=== PATIENT | male | born 1940 | race Hispanic/Latino ===

== ENCOUNTER 2019-09-03 05:01 | Observation (INO) | payer MEDICARE ==
--- NOTE | 2019-09-03 06:56 | Emergency Department Report ---
HPI - General Chief Complaint: Fall Time Seen by Provider: 09/03/19 06:07 - HPI HPI: This is a 78-year-old male who presents to the emergency department via EMS from his shelter, [facility] [place], after the patient had a fall yesterday with possible syncopal episode. Patient says that he remembers going to lunch at the shelter and was reaching for a wet wipe and then woke up on the ground. He did hit his head and face and presents with a small laceration above the right eye and bruising around the right eye. It is unknown whether the patient lost consciousness first, or whether he hit his head and then lost consciousness. Patient says this morning he felt like he was having some difficulty with his memory and speech, but that has since resolved. He said "I could not remember how to do certain things like use the bathroom." He has a past medical history of arthritis, COPD, hypertension. The patient sometimes is able to walk with a walker but appears to be at this shelter secondary to some previous physical deconditioning stemming from an infected gallbladder and prolonged hospitalization. He is awake, alert, oriented at this time. ED Past Medical Hx - Past Medical History Hx Hypertension: Yes Hx Arthritis: Yes Hx COPD: Yes - Social History Smoking Status: Never Smoker Substance Use Type: Alcohol - Medications Home Medications: Home Medications Medication Instructions Recorded Confirmed Last Taken Type hydroCHLOROthiazide 50 mg PO QDAY 09/03/19 09/03/19 Unknown History [Hydrochlorothiazide] ED Review of Systems ROS: Stated complaint: FALL Other details as noted in HPI Comment: All other systems reviewed and negative Constitutional: denies: chills, fever Eyes: denies: eye pain, vision change ENT: denies: ear pain, throat pain Respiratory: denies: cough, shortness of breath Cardiovascular: denies: chest pain, palpitations Gastrointestinal: denies: abdominal pain, vomiting Genitourinary: denies: dysuria, discharge Musculoskeletal: denies: back pain, arthralgia Skin: other (right periorbital ecchymoses, small right forehead laceration). denies: rash Neurological: headache. denies: numbness Physical Exam - Physical Exam Vital Signs: Vital Signs 09/03/19 09/03/19 09/03/19 05:14 05:15 05:19 Temperature 97.9 F Blood Pressure O2 Sat by Pulse 99 97 Oximetry 09/03/19 09/03/19 05:30 05:45 Temperature Blood Pressure 156/82 162/85 O2 Sat by Pulse 98 97 Oximetry Physical Exam: GENERAL: The patient is well-developed well-nourished. HENT: Normocephalic. Patient has moist mucous membranes. EYES: Extraocular motions are intact. Pupils equal reactive to light bilaterally. NECK: Supple. Trachea is midline. CHEST/LUNGS: Clear to auscultation. There is no respiratory distress noted. HEART/CARDIOVASCULAR: Regular. There is no tachycardia. ABDOMEN: Abdomen is soft, nontender. Patient has normal bowel sounds. There is no abdominal distention. SKIN: There is a non-expanding right forehead hematoma. There is some right periorbital ecchymosis. NEURO: The patient is awake, alert, and oriented. The patient is cooperative. The patient has no focal neurologic deficits. Normal speech. Cranial nerves II through XII grossly intact. MUSCULOSKELETAL: There is no tenderness or deformity. There is no evidence of acute injury. ED Course Vital Signs 09/03/19 09/03/19 09/03/19 05:14 05:15 05:19 Temperature 97.9 F Blood Pressure O2 Sat by Pulse 99 97 Oximetry 09/03/19 09/03/19 05:30 05:45 Temperature Blood Pressure 156/82 162/85 O2 Sat by Pulse 98 97 Oximetry ED Medical Decision Making - Lab Data Result diagrams: 09/03/19 07:42 09/03/19 07:42 - EKG Data -: EKG Interpreted by Me EKG shows normal: sinus rhythm, axis (Left axis deviation), intervals, QRS complexes, ST-T waves Rate: normal - EKG Data When compared to previous EKG there are: previous EKG unavailable Interpretation: normal EKG (With left axis deviation) - Radiology Data Radiology results: report reviewed, image reviewed interpreted by me: Chest x-ray does not show any acute process. There are no pleural effusions, obvious pneumonia and there is no pneumothorax. CT HEAD/BRAIN WO CON INDICATION / CLINICAL INFORMATION: Trauma. TECHNIQUE: All CT scans at this location are performed using CT dose reduction for ALARA by means of automated exposure control. COMPARISON: None available. FINDINGS: There is a small to moderate right frontal scalp hematoma. I do not identify a skull fracture. The visualized paranasal sinuses and mastoid air cells are clear. There is moderate generalized cerebral atrophy. There are moderate small vessel ischemic changes in the periventricular white matter. No focal intracranial les ion or mass effect is seen. There is no evidence of intracranial hemorrhage or major vessel occlusion. IMPRESSION: Right frontal scalp hematoma without skull fracture or intracranial hemorrhage. CT FACIAL BONES WO CON INDICATION / CLINICAL INFORMATION: Fell out of a chair. Facial trauma. TECHNIQUE: All CT scans at this location are performed using CT dose reduction for ALARA by means of automated exposure control. COMPARISON: None available. FINDINGS: There is a small to moderate right frontal and periorbital hematoma. I do not identify a fracture. The paranasal sinuses and mastoid air cells are clear. The globes are intact. IMPRESSION: Right frontal and periorbital hematoma without acute osseous abnormality. CT CERVICAL SPINE WO CON INDICATION / CLINICAL INFORMATION: Fell out of a chair with neck pain.. TECHNIQUE: All CT scans at this location are performed using CT dose reduction for ALARA by means of automated exposure control. COMPARISON: None available. FINDINGS: There is moderate degenerative disc disease at the 4-5 and C5-6. The prevertebral soft tissues are normal. There is no evidence of fracture or subluxation. I see no evidence of a focal disc herniation administration or epidural hematoma. The visualized lung apices are clear. There are incidental subcentimeter thyroid nodules bilaterally. No additional follow- up is recommended based on size criteria. IMPRESSION: 1. Spondylosis without acute osseous abnormality. 2. Incidental small thyroid nodules bilaterally. No routine follow-up is recommended based on size criteria (less than 1 cm in size). - Medical Decision Making This patient presents to the emergency department after having a fall yesterday at his shelter facility, and been having some symptoms of confusion and difficulty with speech this morning. The patient is adamant that he fell, hit his head and then lost consciousness, instead of having a syncopal episode and hitting his head. CT scan of the head without contrast does not show any bleed, shift, mass, ischemia, or any other acute process. CT of the facial bones does not show any fracture. CT of the cervical spine also does not show any fracture or subluxation. The patient's labs are mostly unremarkable except for an elevated troponin level of 0.038. EKG did not show any signs of ST elevation ID. However given the patient's strokelike symptoms that have resolved, I would have concern for a TIA, and the patient has the slightly elevated troponin that needs to be followed. He will be admitted to the hospital for further evaluation and was accepted for admission by the hospitalist service. Critical Care Time: No Critical care attestation.: If time is entered above; I have spent that time in minutes in the direct care of this critically ill patient, excluding procedure time. ED Disposition Clinical Impression: Elevated troponin, TIA (transient ischemic attack) Fall Qualifiers: Encounter type: initial encounter Qualified Code(s): W19.XXXA - Unspecified fall, initial encounter Traumatic hematoma of forehead Qualifiers: Encounter type: initial encounter Qualified Code(s): S00.83XA - Contusion of other part of head, initial encounter Disposition: DC-09 OP ADMIT IP TO THIS HOSP Is pt being admited?: Yes Condition: Fair Time of Disposition: 08:35
--- NOTE | 2019-09-03 07:43 | Cat Scan Report ---
CT HEAD/BRAIN WO CON INDICATION / CLINICAL INFORMATION: Trauma. TECHNIQUE: All CT scans at this location are performed using CT dose reduction for ALARA by means of automated e xposure control. COMPARISON: None available. FINDINGS: There is a small to moderate right frontal scalp hematoma. I do not identify a skull fracture. The vi sualized paranasal sinuses and mastoid air cells are clear. There is moderate generalized cerebral atrophy. There are moderate small vessel ischemic changes in t he periventricular white matter. No focal intracranial lesion or mass effect is seen. There is no natalya dence of intracranial hemorrhage or major vessel occlusion. IMPRESSION: Right frontal scalp hematoma without skull fracture or intracranial hemorrhage. Signer Name: Sav Lopez MD Signed: 09/03/2019 7:39 AM Workstation Name: [id number]
--- NOTE | 2019-09-03 07:48 | Cat Scan Report ---
CT FACIAL BONES WO CON INDICATION / CLINICAL INFORMATION: Fell out of a chair. Facial trauma. TECHNIQUE: All CT scans at this location are performed using CT dose reduction for ALARA by means of automated e xposure control. COMPARISON: None available. FINDINGS: There is a small to moderate right frontal and periorbital hematoma. I do not identify a fracture. Th e paranasal sinuses and mastoid air cells are clear. The globes are intact. IMPRESSION: Right frontal and periorbital hematoma without acute osseous abnormality. Signer Name: Sav Lopez MD Signed: 09/03/2019 7:43 AM Workstation Name: [id number]
--- NOTE | 2019-09-03 07:53 | Cat Scan Report ---
CT CERVICAL SPINE WO CON INDICATION / CLINICAL INFORMATION: Fell out of a chair with neck pain.. TECHNIQUE: All CT scans at this location are performed using CT dose reduction for ALARA by means of automated e xposure control. COMPARISON: None available. FINDINGS: There is moderate degenerative disc disease at the 4-5 and C5-6. The prevertebral soft tissues are no rmal. There is no evidence of fracture or subluxation. I see no evidence of a focal disc herniation a dministration or epidural hematoma. The visualized lung apices are clear. There are incidental subcentimeter thyroid nodules bilaterally. No additional follow-up is recommende d based on size criteria. IMPRESSION: 1. Spondylosis without acute osseous abnormality. 2. Incidental small thyroid nodules bilaterally. No routine follow-up is recommended based on size cr iteria (less than 1 cm in size). Signer Name: Sav Lopez MD Signed: 09/03/2019 7:49 AM Workstation Name: [id number]
[2019-09-03 07:55] LABS: Basophils % (Auto) 0.4 % (0.0-1.8); Eosinophils # (Auto) 0.3 K/mm3 (0.0-0.4); Eosinophils % (Auto) 5.1 % (0.0-4.3); Hematocrit 43.4 % (35.5-45.6); Hemoglobin 14.4 gm/dl (11.8-15.2); Lymphocytes # (Auto) 1.6 K/mm3 (1.2-5.4); Lymphocytes % (Auto) 23.9 % (13.4-35.0); Mean Corpuscular HGB Conc 33 % (32-34); Mean Corpuscular Volume 88 fl (84-94); Monocytes # (Auto) 0.5 K/mm3 (0.0-0.8); Platelet Count 238 K/mm3 (140-440); Red Blood Count 4.95 M/mm3 (3.65-5.03)
--- NOTE | 2019-09-03 07:57 | XRay Report ---
CHEST 1 VIEW INDICATION: fall, syncope. COMPARISON: None FINDINGS: Support devices: None. Heart: Within normal limits. Lungs/Pleura: No acute air space or interstitial disease. Additional findings: None. IMPRESSION: No acute findings. Signer Name: Miles Phipps Jr, MD Signed: 09/03/2019 7:53 AM Workstation Name: [id number]
[2019-09-03 08:16] LABS: Alanine Aminotransferase 16 units/L (7-56); Albumin 4.3 g/dL (3.9-5); BUN/Creatinine Ratio 21; Blood Urea Nitrogen 21 mg/dL (9-20); Calcium 9.2 mg/dL (8.4-10.2); Hemolysis Index 3
[2019-09-03 08:27] LABS: Chol/HDL Ratio 2.82 %; HDL Cholesterol 57 mg/dL (40-59); LDL Cholesterol,Direct 95 mg/dL (50-130)
[2019-09-03] MEDS ORDERED: ASPIRIN 81 MG TAB CHEW PO ONE (08:35)
[2019-09-03] MEDS ORDERED: ASPIRIN 325 MG TAB ONE (10:09)
[2019-09-03] MEDS ORDERED: ASPIRIN 81 MG TAB CHEW ONE (10:12)
--- NOTE | 2019-09-03 10:43 | History and Physical Report ---
History of Present Illness Date of examination: 09/03/19 Date of admission: 09/03/19 08:36 Chief complaint: s/p fall History of present illness: 78-year-old white male patient with significant past medical history of COPD hypertension arthritis , resident of assisted living facility was brought to the emergency room with history of fall . Patient reports that he was going to have lunch at the longterm and was trying to reach for wet wipes and l he woke up on the ground. Patient denies any headache or dizziness patient did not have nausea vomiting or diaphoresis Patient sustained multiple superficial abrasions when he hit his head and face on the ground small laceration above the right eye bruising around the right eye. No history suggestive of loss of consciousness or seizure activity, no history suggestive of bladder or bowel incontinence However patient remembers that he had some slurring speech and was unable to talk. Initial work-up in the ED with CT head, CT cervical spine, CT face did not show any acute injuries except for superficial abrasions Patient denied any chest pain or shortness of breath Denies fever chills and rigors, denies nausea vomiting or abdominal pain Past History Past Medical History: arthritis, COPD, hypertension Past Surgical History: No surgical history Social history: full code, other (Assisted living resident). denies: smoking, alcohol abuse, prescription drug abuse Family history: hypertension Medications and Allergies Allergies Allergy/AdvReac Type Severity Reaction Status Date / Time shellfish derived Allergy Hives Verified 09/03/19 05:47 Home Medications Medication Instructions Recorded Confirmed Last Taken Type Vanquish 2 tab PO Q4HR PRN MDD 8 09/03/19 09/03/19 Unknown History hydroCHLOROthiazide 50 mg PO QDAY 09/03/19 09/03/19 Unknown History [Hydrochlorothiazide] Active Meds: Active Medications Sodium Chloride (Nacl 0.9% 1000 Ml) 1,000 mls @ 100 mls/hr IV DIRECT DILMA Review of Systems Constitutional: fatigue, weakness, no weight loss, no weight gain, no fever, no chills Ears, nose, mouth and throat: no nasal congestion, no nasal discharge Cardiovascular: lightheadedness, no chest pain, no orthopnea, no palpitations Respiratory: no cough, no hemoptysis Gastrointestinal: no abdominal pain, no nausea, no vomiting Genitourinary Male: no dysuria, no hematuria Musculoskeletal: arthritis, other (Status post fall) Integumentary: other (Multiple facial and skin abrasions), no rash Neurological: head injury Psychiatric: no anxiety, no depression Endocrine: no polydipsia, no polyuria Hematologic/Lymphatic: no easy bruising, no easy bleeding Allergic/Immunologic: no urticaria, no allergic rhinitis Exam - Constitutional Vitals: Temp Pulse Resp BP Pulse Ox 97.9 F 137/77 98 09/03/19 05:19 09/03/19 09:15 09/03/19 09:15 General appearance: Present: no acute distress, well-nourished - EENT Eyes: Present: PERRL, EOM intact - Neck Neck: Present: supple, normal ROM - Respiratory Respiratory effort: normal Respiratory: bilateral: diminished, negative: rales, rhonchi, wheezing - Cardiovascular Rhythm: regular Heart Sounds: Present: S1 & S2 - Extremities Extremities: no ischemia, No edema - Abdominal General gastrointestinal: Present: soft, non-tender, non-distended, normal bowel sounds - Integumentary Integumentary: Present: clear, warm - Musculoskeletal Musculoskeletal: generalized weakness - Psychiatric Psychiatric: cooperative - Neurologic Neurologic: moves all extremities HEART Score - HEART Score Troponin: Troponin T 0.038 ng/mL (0.00-0.029) H 09/03/19 07:42 Results - Labs CBC & Chem 7: 09/03/19 07:42 09/03/19 07:42 Labs: Abnormal lab results 09/03/19 09/03/19 Range/Units 07:42 07:42 [place] % (Auto) 8.0 H (0.0-7.3) % Eos % (Auto) 5.1 H (0.0-4.3) % BUN 21 H (9-20) mg/dL Troponin T 0.038 H (0.00-0.029) ng/mL Assessment and Plan --Status post fall; Probably mechanical fall, no history suggestive of loss of consciousness Fall precautions,, physical therapy occupational therapy, supportive care --Mild episode of slurring speech; rule out acute CVA versus TIA CT head without contrast unremarkable Check MRI without contrast Echocardiogram, Carotid Doppler Managed with aspirin and statin --Mild elevation of troponin/non-ST elevation MO 2 Serial cardiac enzymes, echocardiogram, cardiology consult if needed Patient is already placed on aspirin and statin --DVT prophylaxis; SCD Will start pharmacologic anticoagulation after MRI of the brain is completed --Full CODE STATUS; DC planning per case management, Farfan PCR test was ordered as a requirement for SNF Possible discharge back to personal skilled nursing when stable And of care reviewed with the patient and her nurse
[2019-09-03] MEDS ORDERED: SODIUM CHLORIDE 0.9% 1000 ML 1,000 ML IV SCH (10:45)
[2019-09-03] MEDS ORDERED: hydrALAZINE 20 MG/1 ML INJ IV PRN (11:56)
[2019-09-03] MEDS ORDERED: MORPHINE 2 MG/1 ML INJ IV PRN (19:40)
[2019-09-03] MEDS: cephALEXin 500 MG CAP PO SCH (21:02)
[2019-09-03 21:41] LABS: Creatine Kinase MB 8.3 ng/mL (0.0-4.0)
[2019-09-03] MEDS: VANQUISH PO PRN (23:40)
[2019-09-04] MEDS: cephALEXin 500 MG CAP PO SCH ×3 (03:23→22:23)
[2019-09-04 05:38] LABS: Creatine Kinase MB 11.5 ng/mL (0.0-4.0)
[2019-09-04] MEDS: ASPIRIN EC 325 MG TAB PO SCH (09:20)
[2019-09-04] MEDS: PANTOPRAZOLE 20 MG TAB PO SCH (09:21)
[2019-09-04] MEDS: hydroCHLOROthiazide 25 MG TAB PO SCH (09:21)
[2019-09-04] MEDS ORDERED: HYDROCHLOROTHIAZIDE 50 MG PO SCH (10:00)
--- NOTE | 2019-09-04 13:01 | Vascular Lab Report ---
"DUPLEX DOPPLER ULTRASOUND CAROTID, BILATERAL INDICATION: CVA/TIA. FINDINGS: RIGHT CAROTID: No significant atherosclerotic plaque. Right ICA peak systolic velocity: 78 cm/sec. Right Vertebral Artery: Antegrade flow. LEFT CAROTID: No significant atherosclerotic plaque. Left ICA peak systolic velocity: 91 cm/sec. Left Vertebral Artery: Antegrade flow. IMPRESSION: 1. Right Internal Carotid Artery: Less than 50% diameter stenosis. 2. Left Internal Carotid Artery: Less than 50% diameter stenosis. Velocity criteria are extrapolated from diameter data as defined by the Society of Radiologists in Ul trasound Consensus Conference, Radiology 2003; 229;340-346. Degree of Stenosis (%) || ICA PSV (cm/sec) || Plaque estimate (%) || ICA/CCA PSV Ratio Normal <125 None <2.0 <50 <125 <50 <2.0 50-69 125-230 50 2.0-4.0 70 but less than 100 >230 50 >4.0 Near occlusion High, low, or none visible variable Total occlusion None visible; no lumen N/A Signer Name: Hernando Rosales MD Signed: 09/04/2019 12:56 PM Workstation Name: [id number]"
--- NOTE | 2019-09-04 13:31 | Magnetic Resonance Report ---
NONENHANCED MR SCAN OF THE BRAIN: INDICATION / CLINICAL INFORMATION: Slurred speech/status post fall/evaluate CVA/TIA. TECHNIQUE: Multiplanar, multisequence MR images of the brain obtained. COMPARISON: CT scan of the head from 09/03/2019 FINDINGS: BRAIN / INTRACRANIAL CONTENTS: No acute ischemia, acute hemorrhage, mass effect, midline shift, or hy drocephalus. No chronic infarct or focal area of encephalomalacia lateral ventricles and third ventr icle are generous, disproportionate to high convexity cortical sulci; confluent periventricular (mode rate) and deep hemispheric white matter lesions ([place]as 2) due to chronic small vessel disease No intracranial sequela from the trauma Scalp hematoma in the right frontal region Crowding of the cortical sulci in the high convexity and ventriculomegaly; neuroforamina are wide sug gesting turbulent flow in the aqueduct and at the level of foramen of [place] CRANIOCERVICAL JUNCTION: No significant abnormality. VASCULAR FLOW-VOIDS: No significant abnormality. ORBITS: No significant abnormality of visualized orbits. SINUSES / MASTOIDS: No significant abnormality of visualized sinuses and mastoid air cells. ADDITIONAL FINDINGS: None. IMPRESSION: 1. No intracranial sequela from the trauma No acute parenchymal lesion in the brain Signer Name: Pacheco Jane MD Signed: 09/04/2019 1:27 PM Workstation Name: [id number]
--- NOTE | 2019-09-04 20:22 | Progress Note ---
Assessment and Plan Assessment and plan: COVID test negative --Status post fall; no new episodes of fall Probably mechanical fall, no history suggestive of loss of consciousness Fall precautions,, physical therapy occupational therapy, supportive care --Mild episode of slurring speech; rule out acute CVA versus TIA Managed with aspirin and statin MRI brain; no acute abnormality CT head without contrast Carotid Doppler; no hemodynamically significant stenosis[< 50%] Echocardiogram: EF 50 to 55%, no ASD or shunt CT head without contrast unremarkable CT head, CT cervical spine, CT face did not show any acute injuries except for superficial abrasions --Mild elevation of troponin/non-ST elevation AR 2 nonspecific Patient has no cardiac symptoms no chest pain or shortness of breath or palpitations Advised to see PMD upon discharge should he have cardiac symptoms. --DVT prophylaxis; SCD Will start pharmacologic anticoagulation after MRI of the brain is completed --Full CODE STATUS; DC planning per case management, Farfan PCR test was ordered as a requirement for SNF Possible discharge back to personal halfway when stable And of care reviewed with the patient and her nurse History Interval history: Patient seen and examined, patient's chart and medications tests reviewed Patient feels slightly better no new episodes of falls Had extensive neuro work-up which was negative Vital signs noted Hospitalist Physical - Constitutional Vitals: Temp Pulse Resp BP Pulse Ox 97.9 F 68 18 120/64 97 09/04/19 16:03 09/04/19 18:17 09/04/19 16:03 09/04/19 16:03 09/04/19 16:03 General appearance: Present: no acute distress, well-nourished - EENT Eyes: Present: PERRL, EOM intact - Neck Neck: Present: supple, normal ROM - Respiratory Respiratory effort: normal Respiratory: bilateral: diminished, negative: rales, rhonchi, wheezing - Cardiovascular Rhythm: regular Heart Sounds: Present: S1 & S2 - Extremities Extremities: no ischemia, No edema - Abdominal General gastrointestinal: soft, non-tender, non-distended, normal bowel sounds - Integumentary Integumentary: Present: clear, warm - Psychiatric Psychiatric: appropriate mood/affect, other (Minimally communicative) - Neurologic Neurologic: moves all extremities HEART Score - HEART Score Troponin: Troponin T 0.031 ng/mL (0.00-0.029) H D 09/04/19 04:50 Results - Labs CBC & Chem 7: 09/03/19 07:42 09/03/19 07:42 Labs: Laboratory Last Values WBC 6.9 K/mm3 (4.5-11.0) 09/03/19 07:42 RBC 4.95 M/mm3 (3.65-5.03) 09/03/19 07:42 Hgb 14.4 gm/dl (11.8-15.2) 09/03/19 07:42 Hct 43.4 % (35.5-45.6) 09/03/19 07:42 MCV 88 fl (84-94) 09/03/19 07:42 MCH 29 pg (28-32) 09/03/19 07:42 MCHC 33 % (32-34) 09/03/19 07:42 RDW 15.0 % (13.2-15.2) 09/03/19 07:42 Plt Count 238 K/mm3 (140-440) 09/03/19 07:42 Lymph % (Auto) 23.9 % (13.4-35.0) 09/03/19 07:42 [place] % (Auto) 8.0 % (0.0-7.3) H 09/03/19 07:42 Eos % (Auto) 5.1 % (0.0-4.3) H 09/03/19 07:42 Baso % (Auto) 0.4 % (0.0-1.8) 09/03/19 07:42 Lymph # 1.6 K/mm3 (1.2-5.4) 09/03/19 07:42 [place] # 0.5 K/mm3 (0.0-0.8) 09/03/19 07:42 Eos # 0.3 K/mm3 (0.0-0.4) 09/03/19 07:42 Baso # 0.0 K/mm3 (0.0-0.1) 09/03/19 07:42 Seg Neutrophils % 62.6 % (40.0-70.0) 09/03/19 07:42 Seg Neutrophils # 4.3 K/mm3 (1.8-7.7) 09/03/19 07:42 Sodium 143 mmol/L (137-145) 09/03/19 07:42 Potassium 3.7 mmol/L (3.6-5.0) 09/03/19 07:42 Chloride 102.6 mmol/L (98-107) 09/03/19 07:42 Carbon Dioxide 30 mmol/L (22-30) 09/03/19 07:42 Anion Gap 14 mmol/L 09/03/19 07:42 BUN 21 mg/dL (9-20) H 09/03/19 07:42 Creatinine 1.0 mg/dL (0.8-1.5) 09/03/19 07:42 Estimated GFR > 60 ml/min 09/03/19 07:42 BUN/Creatinine Ratio 21 % 09/03/19 07:42 Glucose 90 mg/dL (75-100) 09/03/19 07:42 Calcium 9.2 mg/dL (8.4-10.2) 09/03/19 07:42 Total Bilirubin 0.30 mg/dL (0.1-1.2) 09/03/19 07:42 AST 19 units/L (5-40) 09/03/19 07:42 ALT 16 units/L (7-56) 09/03/19 07:42 Alkaline Phosphatase 73 units/L (35-129) 09/03/19 07:42 Total Creatine Kinase 319 units/L (55-170) H 09/04/19 04:50 CK-MB (CK-2) 11.5 ng/mL (0.0-4.0) H 09/04/19 04:50 CK-MB (CK-2) Rel Index 3.6 (0-4) 09/04/19 04:50 Troponin T 0.031 ng/mL (0.00-0.029) H D 09/04/19 04:50 Total Protein 6.9 g/dL (6.3-8.2) 09/03/19 07:42 Albumin 4.3 g/dL (3.9-5) 09/03/19 07:42 Albumin/Globulin Ratio 1.7 % 09/03/19 07:42 Triglycerides 95 mg/dL (2-149) 09/03/19 07:42 Cholesterol 161 mg/dL (50-199) 09/03/19 07:42 LDL Cholesterol Direct 95 mg/dL (50-130) 09/03/19 07:42 HDL Cholesterol 57 mg/dL (40-59) 09/03/19 07:42 Cholesterol/HDL Ratio 2.82 % 09/03/19 07:42 TSH 1.240 mlU/mL (0.270-4.200) 09/03/19 07:42 Nasal Screen MRSA (PCR) Positive (Negative) 09/03/19 12:00 Coronavirus (PCR) Negative (Negative) 09/04/19 10:03 - Diagnostic Impressions Diagnostic Impressions: Echocardiogram 09/03/19 19:39 Transthoracic Echocardiogram Indication: TIA BP: 123/62 HR: 70 Conclusions *The study quality is technically difficult. *Global left ventricular systolic function is normal. *Mild concentric left ventricular hypertrophy is observed. *The estimated ejection fraction is 50-55%. *No atrial septal defected is demonstrated by agitated saline contrast. *There is no evidence of aortic regurgitation. *There is no evidence of mitral regurgitation. *The pulmonic valve is not well visualized. *There is no evidence of tricuspid valve regurgitation. Findings Procedure Info: The study quality is technically difficult. Left Ventricle: The left ventricular chamber size is normal. Mild concentric left ventricular hypertrophy is observed. Global left ventricular wall motion and contractility are within normal limits. Global left ventricular systolic function is normal. The estimated ejection fraction is 50-55%. Abnormal left ventricular diastolic filling is observed, consistent with impaired relaxation. Left Atrium: The left atrial chamber size is normal. Right Ventricle: The right ventricular cavity size is normal. Right Atrium: The right atrial cavity size is normal. No atrial septal defected is demonstrated by agitated saline contrast. Aortic Valve: Mild aortic leaflet calcification is visualized. There is no evidence of aortic regurgitation. Mitral Valve: There is mitral annular calcification. Mild mitral leaflet calcification is visualized. There is no evidence of mitral regurgitation. Tricuspid Valve: There is no evidence of tricuspid valve regurgitation. Pulmonic Valve: The pulmonic valve is not well visualized. Pericardium: There is no pericardial effusion. Aorta: The aorta appears normal. Venous: The inferior vena cava is not visualized. Contrast: Intravenous agitated saline contrast was used to assess intracardiac shunting. Measurements Chambers 2D Name Value Normal Range IVSd (2D) 1.17 cm (0.6 - 1.1) LVPWd (2D) 1.19 cm (0.6 - 1.1) LVIDd (2D) 4.06 cm (3.7 - 5.6) LVIDs (2D) 3.13 cm (2 - 3.8) LV FS (2D) 22.77 % - EF Teichholz (2D) 46.25 % - Ao root diameter (2D) 3.12 cm (2 - 3.7) Volumes/Mass Name Value Normal Range LA ESV SP 4CH (A/L) 39.65 ml - LA ESV SP 2CH (A/L) 32.14 ml - LA ESV BP (A/L) 37.29 ml - LA ESV BP (A/L) index 19.63 ml/m2 - LA ESV SP 4CH (MOD) 37.52 ml - LA ESV SP 2CH (MOD) 31.66 ml - LA ESV BP (MOD) 35.84 ml - LA ESV BP (MOD) index 18.86 ml/m2 - Diastolic/Systolic Function Name Value Normal Range MV E-wave Vmax 0.65 m/sec - MV deceleration time 267.5 msec - MV A-wave Vmax 1.04 m/sec - MV E:A ratio 0.63 ratio - Aortic Valve Name Value Normal Range AV Vmax 1.72 m/sec - AV VTI 37.42 cm - AV peak gradient 11.79 mmHg - AV mean gradient 7.14 mmHg - LVOT diameter 2.1 cm - LVOT Vmax 1.08 m/sec - LVOT VTI 25.43 cm - LVOT peak gradient 4.68 mmHg - LVOT mean gradient 2.97 mmHg - SV LVOT 88.34 ml - JAMISON (continuity Vmax) 2.19 cm2 - JAMISON (continuity VTI) 2.36 cm2 - Greene/IV: Voiding Method Toilet IV Catheter Type [Right INT / Saline Lock Forearm] Active Medications - Current Medications Current Medications: Generic Name Dose Route Start Last Admin Trade Name Freq PRN Reason Stop Dose Admin Aspirin 325 mg 09/04/19 10:00 09/04/19 09:20 Ecotrin PO 325 mg QDAY DILMA Administration Atorvastatin Calcium 40 mg 09/03/19 22:00 09/03/19 21:02 Lipitor PO 40 mg QHS DILMA Administration Cephalexin 500 mg 09/03/19 20:00 09/04/19 18:31 Keflex PO 500 mg Q8H DILMA Administration Hydralazine HCl 10 mg 09/03/19 11:56 09/03/19 17:57 Apresoline IV 10 mg Q4HR PRN Administration Hypertension Hydrochlorothiazide 50 mg 09/04/19 10:00 09/04/19 09:21 Hctz PO 50 mg QDAY DILMA Administration Sodium Chloride 1,000 mls @ 100 mls/hr 09/03/19 10:45 Nacl 0.9% 1000 Ml IV DIRECT [facility] Miscellaneous Medication 2 tab 09/03/19 23:30 09/03/19 23:40 Vanquish PO 2 tab Q4HR PRN Administration Restless leg syndrome Morphine Sulfate 1 mg 09/03/19 19:40 Morphine IV Q4H PRN Pain, Moderate (4-6) Pantoprazole Sodium 20 mg 09/04/19 10:00 09/04/19 09:21 Protonix PO 20 mg QDAY DILMA Administration
[2019-09-05] MEDS: cephALEXin 500 MG CAP PO SCH ×2 (06:00→12:09)
[2019-09-05] MEDS: PANTOPRAZOLE 20 MG TAB PO SCH (12:08)
[2019-09-05] MEDS: ASPIRIN EC 325 MG TAB PO SCH (12:09)
[2019-09-05] MEDS: hydroCHLOROthiazide 25 MG TAB PO SCH ×2 (12:09→12:15)
[2019-09-05] MEDS: VANQUISH PO PRN (12:22)
--- NOTE | 2019-09-05 12:44 | Discharge Summary ---
Providers - Providers Date of Admission: 09/03/19 08:36 Date of discharge: 09/05/19 Attending physician: GEOFFREY LAGUERRE 09/03/19 11:59 Physical Therapy Evaluation and Treat [CONS] Routine Comment: Reason For Exam: History of fall/unsteady gait/evaluate and treat 09/03/19 19:43 Consult to Wound/ET Nurse [CONS] Routine Reason For Exam: wound eval Primary care physician: SQUIRREL MAN Hospitalization Condition: Fair Pertinent studies: MRI brain; no acute abnormality CT head without contrast Carotid Doppler; no hemodynamically significant stenosis[< 50%] Echocardiogram: EF 50 to 55%, no ASD or shunt CT head without contrast unremarkable CT head, CT cervical spine, CT face did not show any acute injuries except for superficial abrasions Hospital course: 78-year-old white male patient with significant past medical history of COPD hypertension arthritis , resident of assisted living facility was admitted with history of fall. Patient reports that he was going to have lunch at the half-way and was trying to reach for wet wipes and l he woke up on the ground. Patient denies any headache or dizziness patient did not have nausea vomiting or diaphoresis Patient sustained multiple superficial abrasions when he hit his head and face on the ground small laceration above the right eye bruising around the right eye. No history suggestive of loss of consciousness or seizure activity, no history suggestive of bladder or bowel incontinence However patient remembers that he had some slurring speech and was unable to talk. Initial work-up in the ED with CT head, CT cervical spine, CT face did not show any acute injuries except for superficial abrasions Patient had extensive neuro work-up for TIA as mentioned below Patient received physical therapy, no PT needs Patient had small abrasions, he is getting Keflex for total 7 days Patient is hemodynamically and clinically stable today Being discharged back to assisted living facility stable at discharge COVID test negative --Status post fall; no new episodes of fall Probably mechanical fall, no history suggestive of loss of consciousness Fall precautions,, physical therapy occupational therapy, supportive care --TIA ;mild episode of slurring speech; Not a candidate for TPA Managed with aspirin and statin MRI brain; no acute abnormality CT head without contrast Carotid Doppler; no hemodynamically significant stenosis[< 50%] Echocardiogram: EF 50 to 55%, no ASD or shunt CT head without contrast unremarkable CT head, CT cervical spine, CT face did not show any acute injuries except for superficial abrasions --Mild elevation of troponin; nonspecific patient did not have any cardiac symptoms No chest pain no shortness of breath Advised follow primary care physician If he has recurrent symptoms contact MD or go to emergency room Stable at discharge Disposition: [id number] ANOTHER [facility] Time spent for discharge: 32 min Core Measure Documentation - Palliative Care Palliative Care/ Comfort Measures: Not Applicable - Core Measures Any of the following diagnoses?: none Exam - Constitutional Vitals: Temp Pulse Resp BP Pulse Ox 98.0 F 75 20 152/92 95 09/05/19 03:39 09/05/19 04:19 09/05/19 03:39 09/05/19 03:39 09/05/19 03:39 General appearance: Present: no acute distress, well-nourished - EENT Eyes: Present: PERRL, EOM intact - Neck Neck: Present: supple, normal ROM - Respiratory Respiratory effort: normal Respiratory: bilateral: diminished, negative: rales, rhonchi, wheezing - Cardiovascular Rhythm: regular Heart Sounds: Present: S1 & S2 - Extremities Extremities: no ischemia, No edema - Abdominal General gastrointestinal: Present: soft, non-tender, non-distended, normal bowel sounds - Integumentary Integumentary: Present: clear, warm - Musculoskeletal Musculoskeletal: strength equal bilaterally - Psychiatric Psychiatric: cooperative - Neurologic Neurologic: moves all extremities Plan Activity: advance as tolerated, fall precautions Diet: regular Additional Instructions: If you have worsening symptoms contact MD or go to emergency room. Fall precautions Follow up with: PRIMARY CARE,MD [Primary Care Provider] - 3-5 Days Prescriptions: Aspirin EC [Ecotrin] 325 mg PO QDAY #30 tablet cephALEXin [Keflex] 500 mg PO Q8H #15 capsule
[2019-09-05 15:30] VITALS: BP 125/73
== END 2019-09-05 17:10 | disposition other institution (70) ==
LOC: ED 05:01 → 4A 08:36
PROVIDERS: ADMIT Internal Medicine; ATTEND Internal Medicine
DX: Z03.818 Encounter for observation for suspected exposure to other biological agents ruled out (principal); G45.9 Transient cerebral ischemic attack, unspecified; R79.89 Other specified abnormal findings of blood chemistry; S00.83XA Contusion of other part of head, initial encounter; I10 Essential (primary) hypertension; M19.90 Unspecified osteoarthritis, unspecified site; J44.9 Chronic obstructive pulmonary disease, unspecified; Z79.899 Other long term (current) drug therapy; W01.198A Fall on same level from slipping, tripping and stumbling with subsequent striking against other object, initial encounter; Y93.89 Activity, other specified; Y92.129 Unspecified place in nursing home as the place of occurrence of the external cause
CPT/HCPCS: 36415; 70450; 70486; 70551; 71045; 72125; 80053; 80061; 82550; 82553; 84443; 84484; 85025; 87641; 93005; 93306; 93880; 96374; 97161; 97530; 99285; A9270; G0378; J0360; U0003